=== PATIENT | male | born 1950 | race Caucasian/White ===

== ENCOUNTER → 2017-10-11 | Outpatient (CLI) | payer OTHER ==
--- NOTE | 2017-10-11 17:10 | Diagnostic Imaging Report ---
TECHNIQUE: Magnetic resonance imaging of the RIGHT ANKLE was performed WITHOUT injected contrast. COMPARISON: None available. HISTORY: Right ankle pain, sprain FINDINGS: LIGAMENTS: Medial Complex: Deltoid complex is intact. Lateral Complex: Inferior tibiofibular ligaments intact. Scarring and attenuation of the anterior talofibular ligament. Calcaneofibular ligament is intact. TENDONS: Medial: Posterior tibial and flexor tendons intact. Lateral: Peroneal brevis tendinopathy with split tearing. Anterior: Anterior tibial and extensor tendons intact. Achilles: Mild Achilles tendinosis. BONES: Edema/contusion of the medial calcaneus. JOINTS: Cartilage: No focal defect is identified involving the tibiotalar joint. Other: Fluid within the joints is within physiologic limits. SOFT TISSUES: Thickening of the plantar fascia edema. IMPRESSION: Scarring of the anterior talofibular ligament. Peroneal brevis tendinopathy with split tearing. Bone marrow edema/contusion of the lateral calcaneus. Chronic plantar fasciitis. Signed by: Dr. Shahram Woodard M.D. on 10/11/2017 5:06 PM
== END ==
LOC: MRI 15:16
PROVIDERS: ATTEND Podiatrist Foot & Ankle Surgery
DX: M25.571 Pain in right ankle and joints of right foot (principal); S93.491A Sprain of other ligament of right ankle, initial encounter

== ENCOUNTER → 2017-12-05 | Day surgery (SDC) | payer OTHER ==
[2017-12-01 16:20] LABS: BASOPHILS # (AUTO) 0.1 (0.0-0.1); BASOPHILS % 0.6 % (0.0-1.0); EOSINOPHILS # (AUTO) 0.2 (0.0-0.4); EOSINOPHILS % 2.2 % (0.0-6.0); HEMATOCRIT 42.5 % (38.2-49.6); HEMOGLOBIN 14.2 g/dL (14.0-18.0); LYMPHOCYTES # (AUTO) 1.8 (1.0-3.2); LYMPHOCYTES % 22.6 % (18.0-39.1); MEAN CORPUSCULAR HEMOGLOBIN 30.2 pg (28-32); MEAN CORPUSCULAR HGB CONC 33.4 g/dL (31-35); MEAN CORPUSCULAR VOLUME 90.4 fL (81-99); MONOCYTES # (AUTO) 0.8 (0.2-0.8); MONOCYTES % 9.8 % (4.4-11.3); NEUTROPHILS # (AUTO) 5.1 (2.1-6.9); NEUTROPHILS % 64.3 % (38.7-80.0); PLATELET COUNT 201 x10e3/uL (140-360); RED CELL DISTRIBUTION WIDTH 14.3 % (11.7-14.4)
[2017-12-01 16:36] LABS: ANION GAP 11.4 mmol/L (8-16); CALCIUM 9.1 mg/dL (8.4-10.2); CREATININE, SERUM 1.38 mg/dL (0.72-1.25); POTASSIUM 4.4 mmol/L (3.5-5.1)
--- NOTE | 2017-12-01 17:04 | Diagnostic Imaging Report ---
PROCEDURE: Frontal and lateral views of the chest. COMPARISON: None. INDICATIONS: PREOP RIGHT FOOT SX MONDAY FINDINGS: Lines/tubes: None. Lungs: The lungs are well inflated and clear. There is no evidence of pneumonia or pulmonary edema. Pleura: There is no pleural effusion or pneumothorax. Heart and mediastinum: The heart and the mediastinum are normal. Bones: No acute bony abnormality. IMPRESSION: 1. No acute cardiopulmonary disease. Kari Aguilar M.D. Dictated by: Kari Aguilar M.D. on 12/01/2017 at 17:07 Electronically approved by: Kari Aguilar M.D. on 12/01/2017 at 17:07
[~2017-12-05] MED LIST: ALLEGRA ALLERG180 MG; AZELASTINE137 MCG/0.; BACITRACIN 50,000 UNIT VIAL ONE; BUPIVACAINE HCL 0.5% INJ 30 ML VIAL INJ ONE; CEFAZOLIN SOD 1 GM VIAL ONE; DEXAMETHASONE SOD PHOS INJ 4 MG/ML VIAL ONE; DEXTROSE 5% 250ML 250 ML IV ONE; EPHEDRINE SULFATE INJ 50 MG/10 ML SYR ONE; FENTANYL CITRATE/PF 100MCG/2 ML INJ ONE; LIDOCAINE HCL 2% LOCAL INJ 5 ML SDV VIAL INJ ONE; MIDAZOLAM HCL 2 MG/2 ML VIAL ONE; NOVALOG SQ; ONDANSETRON HCL INJ 2 MG/ML VIAL ONE; PROPOFOL IV EMULSION 10 MG/ML 20 ML VIAL ONE; SEVOFLURANE INHAL SOLN 250 ML PEN BTL ONE; SINGULAIR10 MG; TRESIBA SQ; VASOTEC5 MG PO
--- NOTE | 2017-12-05 12:42 | Operative Report ---
DATE OF PROCEDURE: December 05, 2017 PREOPERATIVE DIAGNOSES 1. Right ankle subluxing peroneal tendons. 2. Right ankle sprain with rupture of anterior talofibular ligament. 3. Chronic ankle instability. 4. Ganglion cyst. POSTOPERATIVE DIAGNOSES 1. Right ankle subluxing peroneal tendons. 2. Right ankle sprain with rupture of anterior talofibular ligament. 3. Chronic ankle instability. PLANNED PROCEDURES 1. Repair of subluxing peroneal tendons. 2. Brostrom lateral ankle stabilization. 3. Excision of ganglion cyst. BINGO WORKER: Dr. Hakan DPM ANESTHESIA: General with a postoperative block consisting of 15 mL of 0.5% Marcaine plain. HEMOSTASIS: Pneumatic thigh tourniquet set at 350 mmHg for a total time approximately 1 hour and 15 minutes. MATERIALS 1. Size 2 Ethibond. 2. 3-0 Vicryl. 3. 4-0 Vicryl. 4. 4-0 Prolene. 5. One G2 Mitek anchor. PATHOLOGY: None. ESTIMATED BLOOD LOSS: Less than 10 mL. DETAILS OF PROCEDURE: Patient was seen in the preoperative waiting room where the correct procedure and site was identified. The patient was brought to the operating room and placed on the operating table in the supine position. General anesthesia was initiated at this time. A well-padded pneumatic tourniquet was placed about the patient's right thigh. The right foot, ankle and leg was then scrubbed, prepped and draped in the usual aseptic manner. The right foot, ankle and leg was exsanguinated with an Esmarch bandage and the pneumatic thigh tourniquet was inflated to 350 mmHg for a total time of approximately 1 hour 15 minutes. Attention was directed the lateral aspect of the patient's right ankle where a 6 cm curvilinear incision was made directly to the posterior aspect of the patient's posterior fibula. The incision was carried through subcutaneous tissues them from deeper underlying structures. All vital neurovascular structures, including the sural nerve was identified and retracted posteriorly. At this time, a periosteal incision was made directly over the lateral aspect of the fibula and reflecting the superficial peroneal retinaculum posteriorly. At this time, the retinaculum of the tendon sheath was incised to allow for good visualization of the peroneus brevis and peroneus longus tendon. Upon visualization of the tendon, there was noted to be no tendon pathology or partial rupture noted. There was a low lying muscle belly on the peroneus brevis tendon, which was debrided with a #15 blade and electrocautery. Next, the posterior aspect of the fibula was dissected and identified, and there was noted to be a very minimal peroneal groove. At this time, utilizing a bone tamp and side cutting bur the groove was deepened to allow for proper gliding of the peroneal tendons. Next, utilizing a 62 K-wire, drill holes were placed in the lateral aspect of the fibula to allow for repair of the retinaculum. Next, utilizing 2-0 FiberWire the peroneal retinaculum was reattached to the posterior aspect of the fibular to allow for proper gliding of the peroneal tendons with pants over vest type suture. The fixation of the peroneal retinaculum was sufficient. The peroneal tendons were noted to be gliding posteriorly to the fibula. The wound was then flushed with copious amounts of sterile saline. Deep tissue was reapproximated with 3-0 Vicryl. Subcutaneous tissue four with 4-0 Vicryl and the skin was closed using a running interlocking stitch with 4-0 Prolene. Next, attention was directed to the anterior aspect of the ankle where a curvilinear incision was made directly on the anterior and inferior aspect of the fibula. The incision was carried through subcutaneous tissues them from deeper underlying structures. All vital neurovascular structures were identified and retracted medially and laterally. All bleeders were cauterized or ligated as deemed necessary. At this time, the incision was carried down to the level of the ankle capsule. This was identified and a J-incision was made along the anterior aspect of the fibula extending inferiorly to the inferior aspect of the fibula cutting through the diseased ankle capsule, and the anterior talofibular ligament which was noted to be attenuated. A subperiosteal flap was created over the inferior aspect of the fibula. The ankle joint was examined and flushed with copious amounts of sterile saline. Utilizing end maker protocol, one size G2 Mitek anchor was placed in the anterior and inferior aspect of the fibula. Fixation was stable. The sutures from the Mitek anchor were placed in the anterior talofibular ligament while holding the foot in a dorsiflexed and everted position. Fixation was stable. Next, utilizing a size 2 Ethibond, the Ferguson modification was performed by reattaching the ankle capsule and retinaculum with pants over vest type suture technique. Prior to closure, the wound was then flushed with copious amounts of sterile saline. Deep tissues were reapproximated with 3-0 Vicryl. Subcutaneous tissue with 3-0 Vicryl and skin was closed using a running interlocking stitch with 4-0 Prolene. It should be noted that upon incision to the ankle Brostrom procedure, a small approximately 5 mm x 5 mm ganglion cyst was noted in the lateral ankle capsule. This was dissected, excised and passed off to the back table. The stalk from the ganglion cyst was electrocauterized. All incision sites were dressed with Adaptic, 4 x 4s, Kerlix, Webril, posterior splint, 4-inch Angelo wrap, and 6-inch Angelo wrap. The patient tolerated the procedure and anesthesia well. The patient was transferred to the postoperative recovery unit with vital signs stable and vascular status intact. The patient was monitored there for a short period time before being sent home with the following written and oral instructions: 1. Keep the dressing clean, dry and tact. 2. The patient is to remain nonweightbearing in a posterior splint and to avoid any ambulation until being seen in the office. 3. The patient was given the office number and ensured to contact us if any problems should arise. Job#: [id number] KATHIE
== END | disposition home or self-care (01) ==
LOC: OR 06:00
PROVIDERS: ATTEND Podiatrist Foot & Ankle Surgery
DX: S93.491A Sprain of other ligament of right ankle, initial encounter (principal); M25.371 Other instability, right ankle; M67.471 Ganglion, right ankle and foot; G47.33 Obstructive sleep apnea (adult) (pediatric); E11.22 Type 2 diabetes mellitus with diabetic chronic kidney disease; N18.9 Chronic kidney disease, unspecified; X58.XXXA Exposure to other specified factors, initial encounter; Z88.7 Allergy status to serum and vaccine; Z01.810 Encounter for preprocedural cardiovascular examination; Z01.812 Encounter for preprocedural laboratory examination; Z01.818 Encounter for other preprocedural examination; Z79.4 Long term (current) use of insulin
CPT/HCPCS: 27676; 27695; 36415 ×2; 71046; 80048; 82948; 85025; 93005; J0690; J1100; J2001; J2250; J2405